=== PATIENT | female | born 1965 | race Two or more races ===

== ENCOUNTER 2020-08-28 10:59 | Outpatient (CLI) | payer OTHER | END 2020-08-28 11:10 | disposition home or self-care (01) | LOC: SONOGRAMA 10:59 | PROVIDERS: ATTEND General Practice | DX: E04.2 Nontoxic multinodular goiter (principal); E06.3 Autoimmune thyroiditis; R22.1 Localized swelling, mass and lump, neck; E11.9 Type 2 diabetes mellitus without complications; E78.2 Mixed hyperlipidemia; I10 Essential (primary) hypertension ==